=== PATIENT | male | born 1955 | race Caucasian/White ===

== ENCOUNTER → 2018-08-26 07:31 | Outpatient (CLI) | payer OTHER, SELFPAY ==
[2018-08-26 10:14] LABS: Anion Gap 9 (5-15); BUN 14 mg/dL (7-18); BUN/Creat Ratio 14.5 RATIO (10-20); Calcium,Total 8.5 mg/dL (8.5-10.1); Chloride 105 mmol/L (98-107); Cholesterol 209 mg/dL (200); Creatinine, Serum 0.97 mg/dL (0.70-1.30); EST Glomerular Filtration Rate 84 mL/min (>60); Est Glom Filt Rate - Afr Amer 102 mL/min (>60); Glucose 96 mg/dL (74-106); High Density Lipoprotein 31 mg/dL; Potassium 4.1 mmol/L (3.5-5.1); Sodium Level 141 mmol/L (136-145); Triglycerides 280 mg/dL; Very Low Density Lipoprotein 56 mg/dL (5-40)
== END ==
PROVIDERS: Family Provider Family Medicine; PCP Family Medicine; Referring Provider Family Medicine; Visit Provider Family Medicine
DX: I10 Essential (primary) hypertension (principal); E78.5 Hyperlipidemia, unspecified; Z12.5 Encounter for screening for malignant neoplasm of prostate
CPT/HCPCS: 36415; 80048; 80061; 84153; G0103

== ENCOUNTER 2019-02-21 12:12 | Emergency (ER) | payer OTHER, SELFPAY ==
[2019-02-21 12:13] VITALS: BP 150/100; PULSE 105; RESP 18; TEMP 35.9; O2SAT 98; BMI 29.4
--- NOTE | 2019-02-21 12:39 | CT_ITS ---
STUDY: CT ABDOMEN AND PELVIS WITHOUT CONTRAST REASON FOR EXAM: Male, 64 years old. Left lower quadrant pain RADIATION DOSAGE (If Supplied By Facility): CTDIvol = ( 11.77 ) mGy, DLP = ( 588.13 ) mGycm TECHNIQUE: Transaxial images were obtained from the dome of the diaphragm to the symphysis pubis without oral contrast, and without intravenous contrast. Sagittal and coronal images were reconstructed. Individualized dose optimization techniques were used for this CT. COMPARISON: None. FINDINGS: The visualized lung bases are unremarkable. The visualized portions of the heart are within normal limits. Normal liver. Normal gallbladder and extrahepatic biliary system. Normal spleen. Normal pancreas. Normal bilateral adrenal glands. Normal right kidney. Mild hydronephrosis of the left kidney with mild left hydroureter. Normal visualized stomach. Normal small intestine. Mild diverticulosis of the colon. The appendix is visualized and appears normal. Normal abdominal aorta. Normal inferior vena cava. Normal retroperitoneum. Obstructive stone is noted within the intramural segment of the left UVJ at the urinary bladder measuring 3 mm. The prostate is 5 x 5.9 cm. Fatty density at the inguinal canals. Normal abdominal wall. Normal osseous structures. CT/Abdomen/Pelvis without Cont IMPRESSION: Obstructive stone at the left UVJ with mild left hydronephrosis and hydroureter. Prominent prostate. Colonic diverticulosis. Electronically Signed: Mook Horner DO at 13:42 EDT Tel [phone], Service support ,
--- NOTE | 2019-02-21 12:42 | ED.VISSUMM ---
- ER Visit Summary Date of Service: 02/21/19 Chief Complaint: Left lower quadrant pain History of Present Illness: The patient is a 64 M presenting with left lower quadrant pain. He states this started yesterday. It worsened today. He has left lower quadrant pain that radiates to his groin. He denies back pain. He has nausea with no vomiting. No diarrhea or constipation. No blood in his stool. He denies fever. Denies chest pain or shortness of breath. No history of kidney stones. He has history of previous left inguinal hernia repair. He has not felt a bulge in this area. He has no testicular pain. Denies other complaints. Physical Examination: Vitals are stable. Patient is afebrile. Alert no acute distress. HEENT exam is unremarkable. Neck is supple. Lungs are clear and equal bilaterally. Heart is regular rate and rhythm. Abdomen is soft left lower quadrant tenderness with no guarding or rebound : No testicular tenderness or rash. Extremities are unremarkable. Skin is warm and dry. Remainder of exam is unremarkable. Emergency Department Course and Treatment: Patient given morphine, Zofran IV. CBC, chemistries unremarkable. CT abdomen pelvis shows obstructive stone at the left UVJ with mild left hydronephrosis and hydroureter. On reevaluation, patient's pain is controlled. Urinalysis shows 0-5 white blood cells, 5-10 red blood cells. On reevaluation patient states his pain is now resolved. Patient is given prescription for Vass and Zofran. Advised to follow-up with Dr. Ugalde and his primary care physician. Advised return to the ED for worsening complaints. Disposition: Discharge home Impression: Urolithiasis This note was generated with [employer] dictation software. It may contain incorrect words, spelling, and punctuation that were not noted in review of the chart prior to signing ED Disposition - Plan for ED Patient: Referrals: Calin Easlye MD [Primary Care Provider] -
[2019-02-21 12:49] LABS: Absolute Lymphocyte Count 2.26 X10^3/ul (0.83-4.51); Absolute Neutrophil Count 6.3 X10^3/uL (2.0-7.7); Basophil# 0.03 X10^3/uL; Basophil% 0.3 % (0-1); Eosinophil# 0.12 X10^3/uL; Eosinophils% 1.3 % (0-5); Hemoglobin 16.6 g/dl (13.0-16.5); Lymphocyte # 2.26 X10^3/ul (4.0); Mean Corp Hgb Conc 35.3 g/gl (32-36); Mean Corpuscular Hgb 29.7 pg (27.0-32.0); Mean Corpuscular Volume 84.2 fL (80-94); Mean Platelet Vol. 10.7 fl (6.2-12.0); Monocyte# 0.64 X10^3/uL; Monocyte% 6.8 % (0-10); Neutrophil # 6.34 X10^3/uL (2.7-7.7); Neutrophil % 67.4 % (47-70); POSITIVE COUNT NO; POSITIVE DIFFERENTIAL NO; POSITIVE MORPHOLOGY NO; Platelet Count 268 K/mm3 (150-450); RBC Distribution Width SD 40.3 fl (35.1-43.9); Red Blood Count 5.58 M/mm3 (4.6-6.2); White Blood Count 9.4 K/mm3 (4.4-11.0)
[2019-02-21] MEDS: Morphine 4 MG/ML Syringe IV (12:51)
[2019-02-21] MEDS: Ondansetron 4 MG/2 ML Vial IV (12:51)
[2019-02-21 12:55] LABS: Anion Gap 8 (5-15); BUN 15 mg/dL (7-18); BUN/Creat Ratio 13.3 RATIO (10-20); Calcium,Total 8.6 mg/dL (8.5-10.1); Chloride 110 mmol/L (98-107); Creatinine, Serum 1.13 mg/dL (0.70-1.30); EST Glomerular Filtration Rate 70 mL/min (>60); Est Glom Filt Rate - Afr Amer 85 mL/min (>60); Estimated Creatinine Clearance 69.99 ml/min; Glucose 123 mg/dL (74-106); Sodium Level 140 mmol/L (136-145)
[2019-02-21 13:34] VITALS: BP 129/71; PULSE 74; RESP 18; O2SAT 96
[2019-02-21 15:38] LABS: Bacteria 0 SEEN /hpf (None Seen); Mucous, Urine 0 SEEN /hpf (<or=2+); Squamous Epithelial Cells - UA 0 SEEN /hpf (0-5)
[2019-02-21 15:39] LABS: Color, Urine Yellow (Yellow); Glucose, Dipstick Normal (Normal); Ketone-Dipstick 50 mg/dl (Negative); Leukocyte Esterase-Dipstick Negative /ul (Negative); Nitrite-Dipstick Negative (Negative); Occult Blood-Urine 250 /ul (Negative); Protein-Dipstick Negative (Negative); Urine Bilirubin Dipstick Negative (Negative); Urine Clarity Clear (Clear); Urine Urobilinogen Normal (Normal)
--- NOTE | 2019-02-21 15:41 | ED.RN ---
PT VOIDED 780 CC PALE URINE
[2019-02-21 15:46] LABS: Red Blood Cells-Urine 5-10 SEEN /hpf (0-5); White Blood Cells 0-5 SEEN /hpf (0-5)
--- NOTE | 2019-02-21 16:03 | DCINST.ED_ITS ---
ED Disposition - Plan for ED Patient: Instructions: ED Stone Renal W Colic Prescriptions: Hydrocodone Bitart/Apap 5-325 [Fe [employer] 5MG-325MG] 1 tablet PO Q6H PRN PRN 3 Days #10 tablet PRN Reason: Pain Ondansetron [Zofran Odt] 4 mg PO Q8H PRN PRN #10 tablet PRN Reason: Nausea Referrals: Calin Easley MD [Primary Care Provider] - Jayden Ugalde MD [STAFF PHYSICIAN] -
[2019-02-21 16:10] VITALS: BP 150/98; PULSE 84; RESP 17; O2SAT 97
== END 2019-02-21 16:17 | disposition home or self-care (01) ==
LOC: ED 13:00
PROVIDERS: Emergency Provider Emergency Medicine; Family Provider Family Medicine; PCP Family Medicine
DX: N13.2 Hydronephrosis with renal and ureteral calculous obstruction (principal); I10 Essential (primary) hypertension; Z79.82 Long term (current) use of aspirin; Z79.899 Other long term (current) drug therapy
CPT/HCPCS: 74176; 80048; 81001; 85025; 96374; 96375; 99283; J7030; J2405

== ENCOUNTER 2019-02-23 10:15 | Inpatient (IN) | payer OTHER, SELFPAY ==
[2019-02-23 10:50] VITALS: BP 163/92; PULSE 90; RESP 18; TEMP 37.1; O2SAT 94; BMI 29.5
[2019-02-23 11:08] VITALS: BMI 29.5
[2019-02-23] MEDS: Morphine 2 MG/ML Syringe IV (11:19)
[2019-02-23] MEDS: 0.9% Normal Saline 1,000 ML 100 ML IV ×2 (11:19→22:03)
[2019-02-23] MEDS: 0.9% NaCl Peripheral Flush Adult/Peds IV ×3 (11:23→18:34)
[2019-02-23 12:33] LABS: Basophil# 0.02 X10^3/uL; Basophil% 0.2 % (0-1); Eosinophil# 0.03 X10^3/uL; Eosinophils% 0.3 % (0-5); Hematocrit 46.6 % (40-54); Hemoglobin 16.1 g/dl (13.0-16.5); Lymphocyte % 7.7 % (19-41); Mean Corp Hgb Conc 34.5 g/gl (32-36); Mean Corpuscular Volume 86.8 fL (80-94); Mean Platelet Vol. 10.5 fl (6.2-12.0); Monocyte# 0.62 X10^3/uL; Monocyte% 5.9 % (0-10); Neutrophil # 8.95 X10^3/uL (2.7-7.7); Neutrophil % 85.6 % (47-70); Platelet Count 249 K/mm3 (150-450); RBC Distribution Width SD 41.4 fl (35.1-43.9); Red Blood Count 5.37 M/mm3 (4.6-6.2); White Blood Count 10.5 K/mm3 (4.4-11.0)
[2019-02-23] MEDS: Ondansetron 4 MG/2 ML Vial IV ×2 (12:33→18:34)
[2019-02-23] MEDS: Cefazolin 1 GM/50 ML BAG IV ×2 (12:33→22:16)
[2019-02-23] MEDS: Ketorolac 15 MG/ML Vial IV ×2 (12:34→18:34)
[2019-02-23 12:36] LABS: POSITIVE COUNT NO; POSITIVE DIFFERENTIAL NO; POSITIVE MORPHOLOGY NO
[2019-02-23 13:03] LABS: Anion Gap 7 (5-15); BUN 14 mg/dL (7-18); BUN/Creat Ratio 10.2 RATIO (10-20); Calcium,Total 8.7 mg/dL (8.5-10.1); Chloride 107 mmol/L (98-107); Creatinine, Serum 1.37 mg/dL (0.70-1.30); EST Glomerular Filtration Rate 56 mL/min (>60); Est Glom Filt Rate - Afr Amer 68 mL/min (>60); Estimated Creatinine Clearance 57.73 ml/min; Glucose 106 mg/dL (74-106); Potassium 4.3 mmol/L (3.5-5.1); Sodium Level 141 mmol/L (136-145)
[2019-02-23 16:38] VITALS: BP 116/80; PULSE 80; RESP 18; TEMP 37.1; O2SAT 98
[2019-02-23 20:15] VITALS: BP 124/74; PULSE 76; RESP 16; TEMP 37.6; O2SAT 97
[2019-02-24] VITALS (10 sets, daily range): BP systolic 112–150; BP diastolic 72–94; PULSE 75–100; RESP 16–18; TEMP 36.5–37.4; O2SAT 95–100; BMI 29.5
--- NOTE | 2019-02-24 04:00 | EKG12_ITS ---
Test Reason : AM EKG Blood Pressure : / mmHG Vent. Rate : 077 BPM Atrial Rate : 077 BPM P-R Int : 174 ms QRS Dur : 074 ms QT Int : 392 ms P-R-T Axes : 055 023 044 degrees QTc Int : 443 ms Normal sinus rhythm Low voltage QRS Borderline ECG When compared with ECG of 28-OCT-2015 09:36, No significant change was found Confirmed by GARY LOZOYA ([id number]), editorial project manager GIAN LUQUE ([id number]) on 03/01/2019 4:48:04 PM Referred By: Jayden Ugalde Confirmed By:KADEN LOZOYA
[2019-02-24] MEDS: Cefazolin 1 GM/50 ML BAG IV ×2 (05:06→14:20)
--- NOTE | 2019-02-24 07:25 | HP.PCM_ITS ---
History of Present Illness Date of Admission: 02/24/19 Chief Complaint: LEFT FLANK PAIN The patient is a 64 year old male with significant renal colic on the left side presented to the office with nausea vomiting uncontrolled pain patient was admitted from the office because of this obstructing stone in the left distal ureter with significant hydronephrosis and high-grade obstruction. Patient was admitted today because of pain control was not adequate at home with oral medications and nausea and vomiting. Past Medical History Allergies erythromycin base Adverse Reaction (Verified 10/26/15 12:01) Upset Stomach Home Medications: Ambulatory Orders Medication Instructions Recorded Aspirin [Durlaza] 162.5 mg PO DAILY 10/26/15 Metoprolol Tartrate [Lopressor 12.5 mg PO BID 10/26/15 (beta alexis)] Ondansetron [Zofran Odt] 4 mg PO Q8H PRN PRN #10 tablet 02/21/19 Surgical History: no surgical history Lives: With Family Smoking Status: Never smoker Tobacco Use: Non-smoker Alcohol: None Drugs: None - *Family History Maternal History Items: No pertinent history Review of Systems Constitutional: Reports: Chills HEENT: Denies: Head Aches, Sinus Congestion, Sinus Drainage Cardiovascular: Denies: Chest Pain, Palpitations Respiratory: Denies: Cough, Shortness of breath at rest, Sputum production Gastrointestinal: Reports: Abdominal Pain, Nausea, Vomiting Genitourinary: Denies: Dysuria Musculoskeletal: Denies: Joint Pain, Joint Tenderness Skin: Denies: Rash, Wounds Neurological: Denies: Numbness, Tingling, Focal weakness Psychiatric: Denies: Anxiety, Depression, Homicidal Ideations, Suicidal Ideations Hematologic/ Lymphatic: Denies: Easy Bruising, Easy Bleeding VTE Information - Inpt Only VTE Present on Admission: No VTE Mechan Device Prophylaxis: SCD's - Physical Exam General: Alert, Oriented x3, Cooperative HEENT: Atraumatic, PERRLA, EOMI, Normocephalic Neck: Supple, No JVD, Negative Carotid Bruits Lungs: Clear to auscultation, Normal air movement Cardiovascular: Regular rate, No murmurs Abdomen: Bowel Sounds Present, Soft, Non Tender Extremities: No edema, Capillary Refill Less than 3 Seconds Skin: No rashes, No breakdown Musculoskeletal: No Tenderness to Palpation of Joints or Extremities Neurological: Cranial nerves II-XII grossly intact Psych/Mental Status: Normal Affect, Appropriate Vital Signs Temp Pulse Resp BP Pulse Ox 99.3 F H 84 16 112/72 97 02/24/19 02:01 02/24/19 02:01 02/24/19 02:01 02/24/19 02:01 02/24/19 02:01 Oxygen Delivery Method Room Air Weight: 93.3 kg Body Mass Index (BMI) 29.5 Intake and Output for Last 24 Hours 02/22/19 02/23/19 02/24/19 23:59 23:59 23:59 Intake Total 1064 / 1064 664 / 664 Output Total 775 / 775 250 / 250 Balance 289 / 289 414 / 414 Laboratory Tests Past 24 Hrs 02/23/19 02/23/19 12:05 12:05 WBC 10.5 RBC 5.37 Hgb 16.1 Hct 46.6 MCV 86.8 MCH 30.0 MCHC 34.5 RDW 13.0 RDW Differential 41.4 Plt Count 249 MPV 10.5 Immature Gran % (Auto) 0.300 Neut % (Auto) 85.6 H Lymph % (Auto) 7.7 L Freestone % (Auto) 5.9 Eos % (Auto) 0.3 Baso % (Auto) 0.2 Absolute Neuts (auto) 9.0 H Absolute Lymphs (auto) 0.80 L Total Counted Not Reportable Sodium 141 Potassium 4.3 Chloride 107 Carbon Dioxide 27.0 Anion Gap 7 BUN 14 Creatinine 1.37 H Estim Creat Clear Calc 57.73 Est GFR (MDRD) Af Amer 68 Est GFR (MDRD) Non-Af 56 L BUN/Creatinine Ratio 10.2 Glucose 106 Calcium 8.7 Assessment/Plan Patient will be n.p.o., IV fluids, will check labs, plan to taken to surgery tomorrow for cystoscopy stent placement possible ureteroscopy extraction of stone.
[2019-02-24] MEDS: Metoprolol Tartrate 25 MG Tablet 12.5 MG PO (08:01)
[2019-02-24] MEDS: 0.9% Normal Saline 1,000 ML 100 ML IV ×2 (08:04→17:18)
--- NOTE | 2019-02-24 10:50 | CASEMGMT ---
RN MISSY DIRECTOR OF INCOME TAX CM to room to meet with patient for initial transition planning/care coordination assessment. RN MISSY introduced self and role at [facility]. Pt voices understanding and consents to assessment at this time. Pt resting in bed in no distress at this time. @ bedside. Pt is A/O at this time and answers all questions appropriately. Care providers, pharmacy, and demographics verified at this time. PCP: Calin Easley Specialists: Aftab Benoit Pharmacy: [facility] Insurance: MMO Prescription Benefit: Yes States does not have LW or HCPOA . Provided with AD information. Pt states would like to talk with SW to complete paperwork. LNOK: Living Arrangements: Lives with in one-story home. Independent. and pt share home mgmt tasks. Transportation: Pt states drives self and states no transportation concerns at this time. able to drive on d/c. DME: Denies using any DME and denies needs. HHC/SNF: No history of either and no needs identified. Pt wishes to return home and states has no concerns with going home at time of discharge. CM to follow for any discharge planning/needs. Pt voices no further concerns/needs at this time. Advised pt to ask for CM if any further questions/concerns/needs arise. Voices understanding. PLAN: Home w/spousal support and discharge plans in place. SW consult for AD. Rosibel WILSON RN, CM
--- NOTE | 2019-02-24 14:58 | CASEMGMT ---
Social Work Note SW received referral for advanced directives. SW attempted to meet with pt, pt currently off floor for procedure. SW will follow up with pt tomorrow in regards to advanced directives. Serina Young CUSTOMER TRAINING SPECIALIST, AIRCRAFT ENGINE DISMANTLER
--- NOTE | 2019-02-24 15:25 | DCINST_ITS ---
Discharge Diet: Light diet - advance as tolerated Discharge Activity: May not drive while taking narcotic pain medications. Call your doctor if you observe: Fever of 101 or Higher Suture Line Care: Avoid Pulling/Pushing, Avoid Pinching/Bending Allergies/Adverse Reactions: Allergies erythromycin base Adverse Reaction (Verified 10/26/15 12:01) Upset Stomach Medications to take at Discharge Aspirin [Durlaza] 162.5 mg PO DAILY 10/26/15 Metoprolol Tartrate [Lopressor (beta alexis)] 12.5 mg PO BID 10/26/15 Ondansetron [Zofran Odt] 4 mg PO Q8H PRN PRN #10 tablet 02/21/19 Primary Care Physician: Calin Easley MD [Primary Care Provider] - Test Results: Test results from this visit will be discussed in further detail at your follow- up appointment, if applicable. Please Follow Up With: Jayden Ugalde MD When: please call to make an appointment.
--- NOTE | 2019-02-24 15:53 | PCM.OPRPT ---
Report of Operation Date of Procedure: 02/24/19 Pre-Operative Diagnosis: Left ureteral calculi causing obstruction and renal colic Post-Operative Diagnosis: Same Surgery/Procedure Performed:: Cystoscopy, left retrograde pyelogram, fluoroscopic interpretation of images, balloon dilation of left ureter, left ureteroscopy extraction of stone and left stent placement Description of Surgical Findings:: 64-year-old male taken back to the operating room at the smooth induction of anesthesia he was placed in dorsolithotomy position, I went into the bladder with a 21 [place] rigid cystourethroscope the entire length the urethra was normal sphincter was normal the prostate was normal I went into the bladder identified the left ureteral orifice is normal in size cannulated this advanced a wire up the ureter then over the wire advanced a balloon dilator about 4 cm and then balloon dilated the distal ureter with a 12 Ug[place]an 10 cm balloon dilator after balloon dilated the distal ureter then I advanced a wire up over the wire went over the flexible ureteroscope was able to go into the ureter quite easily went up to the kidney inspected the upper pole midpole lower pole the kidney work my way down the ureter as I worked my way down the ureter I could feel the stone on this on the ureteroscope and as I pulled the ureteroscope down the ureter the stone came out with the ureteroscope I then I went back and checked the ureter there is no remaining stone fragments I then advanced a wire up into the kidney and then a wire in place a stent we drain the bladder remove the stone fragments sent off as a specimen stent was left to the string for easy extraction bladder was drained patient anesthetic was reversed taken back to PACU good condition. Type of Anesthesia:: General Drains: stent right side - Admit VTE Documentation VTE Present on Admission: No VTE Mechan Device Prophylaxis: SCD's
[2019-02-24] MEDS: Ketorolac 15 MG/ML Vial IV (17:18)
[2019-03-01 20:06] LABS: Ca Oxalate, Monohydrate 92 % (.); Size 3x3x3 mm (.)
== END 2019-02-24 18:38 | disposition home or self-care (01) | DRG 661 ==
PROVIDERS: Admitting Provider Urology; Family Provider Family Medicine; PCP Family Medicine; Referring Provider Urology; Visit Provider Urology
PROC: 0TJ98ZZ Inspection of Ureter, Via Natural or Artificial Opening Endoscopic (ICD-10-PCS; CPT 52352; principal; 2019-02-24 16:00)
DX: N13.2 Hydronephrosis with renal and ureteral calculous obstruction (principal)
CPT/HCPCS: 36415; 76000; 80048; 82360; 85025; 93005; J7030; A4216; C1769; C2617; J2405

== ENCOUNTER → 2019-09-17 10:09 | Outpatient (CLI) | payer OTHER, SELFPAY ==
[2019-02-24 08:35] VITALS: BMI 29.5
--- NOTE | 2019-09-17 16:51 | NEURO ---
NCS and/or EMG Patient Report HPI: Patient is a 64-year-old male who presented with numbness, tingling and weakness in the right hand. Symptoms have progressed over the years and now bother him during sleep. Patient denies any neck injuries or neck surgery and is not diabetic. Physical Exam: decreased sensation to light touch in right hand fingers. Mild weakness of the right hand muscles. Tenderness at right wrist with slightly positive Tinel's sign. Findings: 1. There is prolongation of the distal latency of the right median sensory nerve response. 2. There is prolongation of distal latency of right ulnar sensory nerve response. 3. There is prolongation of the distal latency of the right median motor nerve response. 4. There is evidence of mild denervation in the form of few P waves and fibrillation potentials on needle examination of the right abductor pollicis brevis muscle. There is also evidence of decreased recruitment of the right abductor pollicis brevis and first dorsal interossei muscles. Impression: 1. Findings are consistent with a severe right median mononeuropathy at wrist due to carpal tunnel syndrome. 2. Findings are also consistent with right ulnar sensory neuropathy. Recommendation: 1. Patient recommended to wear right hand and elbow splints as much as possible. 2. Patient recommended to avoid repetitive right hand movements, heavy lifting and sleeping or leaning on right elbow. 3. Patient will need surgical release of right carpal tunnel syndrome as soon as possible due to ongoing denervation in his right abductor pollicis brevis muscle.
== END ==
PROVIDERS: Family Provider Family Medicine; PCP Family Medicine; Referring Provider Family Medicine; Visit Provider Family Medicine
DX: G56.01 Carpal tunnel syndrome, right upper limb (principal)
CPT/HCPCS: 95886; 95909

== ENCOUNTER → 2020-03-07 08:12 | Outpatient (CLI) | payer OTHER, SELFPAY ==
[2019-02-24 08:35] VITALS: BMI 29.5
[2020-03-07 10:11] LABS: Anion Gap 6 (5-15); BUN 11 mg/dL (7-18); BUN/Creat Ratio 11.2 RATIO (10-20); Calcium,Total 8.6 mg/dL (8.5-10.1); Chloride 109 mmol/L (98-107); Cholesterol 225 mg/dL (200); Creatinine, Serum 0.98 mg/dL (0.70-1.30); EST Glomerular Filtration Rate 82 mL/min (>60); Est Glom Filt Rate - Afr Amer 99 mL/min (>60); Glucose 98 mg/dL (74-106); High Density Lipoprotein 34 mg/dL; Sodium Level 141 mmol/L (136-145); Triglycerides 206 mg/dL; Very Low Density Lipoprotein 41 mg/dL (5-40)
== END ==
PROVIDERS: PCP Family Medicine; Referring Provider Family Medicine; Visit Provider Family Medicine
DX: I10 Essential (primary) hypertension (principal)
CPT/HCPCS: 36415; 80048; 80061

== ENCOUNTER → 2020-07-25 11:12 | Outpatient (CLI) | payer OTHER, SELFPAY ==
[2019-02-24 08:35] VITALS: BMI 29.5
[2020-07-25 12:42] LABS: Hematocrit 47.4 % (40-54); Mean Corp Hgb Conc 33.8 g/dL (32-36); Mean Corpuscular Hgb 29.5 pg (27.0-32.0); Mean Corpuscular Volume 87.3 fL (80-94); Mean Platelet Vol. 10.8 fl (6.2-12.0); Platelet Count 262 K/mm3 (150-450); RBC Distribution Width CV 12.7 % (11.6-14.6); RBC Distribution Width SD 39.9 fl (35.1-43.9); Red Blood Count 5.43 M/mm3 (4.6-6.2); White Blood Count 5.4 K/mm3 (4.4-11.0)
[2020-07-25 13:16] LABS: Anion Gap 6 (5-15); BUN 14 mg/dL (7-18); BUN/Creat Ratio 14.1 RATIO (10-20); Calcium,Total 8.9 mg/dL (8.5-10.1); Chloride 107 mmol/L (98-107); Creatinine, Serum 0.99 mg/dL (0.70-1.30); EST Glomerular Filtration Rate 81 mL/min (>60); Est Glom Filt Rate - Afr Amer 98 mL/min (>60); Glucose 96 mg/dL (74-106); Potassium 3.8 mmol/L (3.5-5.1); Sodium Level 140 mmol/L (136-145)
== END ==
PROVIDERS: PCP Family Medicine; Referring Provider Specialist; Visit Provider Specialist
DX: Z01.818 Encounter for other preprocedural examination (principal)
CPT/HCPCS: 36415; 80048; 85027

== ENCOUNTER → 2020-09-12 10:50 | Outpatient (CLI) | payer OTHER, SELFPAY ==
[2019-02-24 08:35] VITALS: BMI 29.5
[2020-09-12 12:31] LABS: Basophil# 0.04 X10^3/uL; Basophil% 0.7 % (0-1); Eosinophil# 0.17 X10^3/uL; Eosinophils% 3.1 % (0-5); Hematocrit 45.5 % (40-54); Hemoglobin 15.4 g/dL (13.0-16.5); Lymphocyte % 32.8 % (19-41); Mean Corp Hgb Conc 33.8 g/dL (32-36); Mean Corpuscular Hgb 29.8 pg (27.0-32.0); Mean Corpuscular Volume 88.2 fL (80-94); Mean Platelet Vol. 10.9 fl (6.2-12.0); Monocyte# 0.48 X10^3/uL; Monocyte% 8.8 % (0-10); NRBC Flagged by Analyzer 0 % (0-5); Neutrophil # 2.98 X10^3/uL (2.7-7.7); Neutrophil % 54.4 % (47-70); Platelet Count 279 K/mm3 (150-450); RBC Distribution Width CV 13.1 % (11.6-14.6); RBC Distribution Width SD 42.2 fl (35.1-43.9); Red Blood Count 5.16 M/mm3 (4.6-6.2); White Blood Count 5.5 K/mm3 (4.4-11.0)
[2020-09-12 13:04] LABS: Anion Gap 4 (5-15); BUN 14 mg/dL (7-18); Calcium,Total 8.7 mg/dL (8.5-10.1); Chloride 109 mmol/L (98-107); EST Glomerular Filtration Rate 80 mL/min (>60); Est Glom Filt Rate - Afr Amer 97 mL/min (>60); Glucose 89 mg/dL (74-106); Potassium 4.4 mmol/L (3.5-5.1); Sodium Level 139 mmol/L (136-145)
== END ==
PROVIDERS: PCP Family Medicine; Referring Provider Specialist; Visit Provider Specialist
DX: Z01.810 Encounter for preprocedural cardiovascular examination (principal); G56.02 Carpal tunnel syndrome, left upper limb
CPT/HCPCS: 36415; 80048; 85025

== ENCOUNTER → 2020-12-07 09:33 | Outpatient (CLI) | payer OTHER, SELFPAY ==
[2019-02-24 08:35] VITALS: BMI 29.5
[2020-12-07 12:36] LABS: AST(SGOT) 21 U/L (15-37); Alanine Aminotransfer ALT/SGPT 43 U/L (16-61); Albumin, Serum 3.6 g/dL (3.2-5.0); Alkaline Phosphatase 78 U/L (45-117); Anion Gap 7 (5-15); BUN 11 mg/dL (7-18); BUN/Creat Ratio 10.5 RATIO (10-20); Calcium,Total 8.6 mg/dL (8.5-10.1); Chloride 107 mmol/L (98-107); Cholesterol 228 mg/dL (200); Creatinine, Serum 1.05 mg/dL (0.70-1.30); EST Glomerular Filtration Rate 76 mL/min (>60); Est Glom Filt Rate - Afr Amer 92 mL/min (>60); Globulin 3.6 g/dL (2.2-4.2); Glucose 94 mg/dL (74-106); High Density Lipoprotein 34 mg/dL; Potassium 4.3 mmol/L (3.5-5.1); Protein, Total 7.2 g/dL (6.4-8.2); Sodium Level 138 mmol/L (136-145); Triglycerides 165 mg/dL; Very Low Density Lipoprotein 33 mg/dL (5-40)
== END ==
PROVIDERS: PCP Family Medicine; Referring Provider Family Medicine; Visit Provider Family Medicine
DX: E78.5 Hyperlipidemia, unspecified (principal)
CPT/HCPCS: 36415; 80053; 80061

== ENCOUNTER → 2021-02-28 10:26 | Outpatient (CLI) | payer OTHER, SELFPAY ==
[2019-02-24 08:35] VITALS: BMI 29.5
[2021-02-28 12:34] LABS: Anion Gap 5 (5-15); BUN 9 mg/dL (7-18); Calcium,Total 8.7 mg/dL (8.5-10.1); Chloride 107 mmol/L (98-107); Cholesterol 154 mg/dL (200); EST Glomerular Filtration Rate 80 mL/min (>60); Est Glom Filt Rate - Afr Amer 97 mL/min (>60); Glucose 94 mg/dL (74-106); High Density Lipoprotein 36 mg/dL; Potassium 4.2 mmol/L (3.5-5.1); Sodium Level 139 mmol/L (136-145); Triglycerides 130 mg/dL; Very Low Density Lipoprotein 26 mg/dL (5-40)
== END ==
PROVIDERS: PCP Family Medicine; Referring Provider Family Medicine; Visit Provider Family Medicine
DX: I10 Essential (primary) hypertension (principal)
CPT/HCPCS: 36415; 80048; 80061

== ENCOUNTER → 2023-02-27 | Outpatient (CLI) | payer OTHER, SELFPAY ==
[2023-02-27 10:19] LABS: Absolute Lymphocyte Count 1.56 X10^3/uL (0.83-4.51); Absolute Neutrophil Count 2.3 X10^3/uL (2.0-7.7); Basophil# 0.06 X10^3/uL; Basophil% 1.3 % (0-1); Eosinophil# 0.31 X10^3/uL; Eosinophils% 6.6 % (0-5); Hemoglobin 16.9 g/dL (13.0-16.5); Lymphocyte # 1.56 X10^3/ul (0.83-4.51); Lymphocyte % 33.3 % (19-41); Mean Corp Hgb Conc 33.8 g/dL (32-36); Mean Corpuscular Hgb 29.4 pg (27.0-32.0); Mean Corpuscular Volume 87.1 fL (80-94); Mean Platelet Vol. 10.8 fl (6.2-12.0); Monocyte# 0.45 X10^3/uL; Monocyte% 9.6 % (0-10); NRBC Flagged by Analyzer 0 % (0-5); Platelet Count 229 K/mm3 (150-450); RBC Distribution Width CV 12.9 % (11.6-14.6); Red Blood Count 5.74 M/mm3 (4.6-6.2); White Blood Count 4.7 K/mm3 (4.4-11.0)
[2023-02-27 10:34] LABS: Anion Gap 5 (5-15); BUN 13 mg/dL (7-18); BUN/Creat Ratio 13.1 RATIO (10-20); Calcium,Total 8.7 mg/dL (8.5-10.1); Chloride 110 mmol/L (98-107); Cholesterol 134 mg/dL (200); EST Glomerular Filtration Rate 80 mL/min (>60); Est Glom Filt Rate - Afr Amer 97 mL/min (>60); Glucose 113 mg/dL (74-106); High Density Lipoprotein 31 mg/dL; PSA,Total - Annual Screen 4.82 ng/mL (0.00-4.00); Potassium 4.2 mmol/L (3.5-5.1); Sodium Level 140 mmol/L (136-145); Triglycerides 172 mg/dL; Very Low Density Lipoprotein 34 mg/dL (5-40)
== END | disposition home or self-care (01) ==
LOC: MTLAB 07:53
PROVIDERS: PCP Family Medicine; Referring Provider Family Medicine; Visit Provider Family Medicine
DX: Z00.00 Encounter for general adult medical examination without abnormal findings (principal); Z12.5 Encounter for screening for malignant neoplasm of prostate; R06.02 Shortness of breath
CPT/HCPCS: 36415; 80048; 80061; 84153; 85025; G0103

== ENCOUNTER → 2023-03-07 | Outpatient (CLI) | payer OTHER, SELFPAY ==
--- NOTE | 2023-03-07 16:29 | STRESSREP ---
Stress Test Report Exercise myocardial perfusion stress test. 68-year-old man with a history of chest pain Stress protocol: Resting EKG demonstrates normal sinus rhythm with a rate of 83 bpm resting blood pressure is 142/80 mmHg. The patient exercised according to the regular Gautam protocol for a total duration of 4 minutes and 45 seconds attaining a maximum heart rate of 166 bpm which was 107% of maximum predicted heart rate; the maximum workload was 7 metabolic equivalents. At rest there were no ST or T wave changes noted to suggest ischemia and at peak exercise upsloping ST changes only were noted which did not meet the criteria for ischemia. Occasional premature ventricular complexes were noted during recovery no clinical angina was noted the test was terminated due to the target heart rate being achieved/fatigue. Patient also noted moderate to severe shortness of breath. The peak blood pressure was 230/100 mmHg. this was a hypertensive response to exercise. Rate-pressure product was 28,200. Myocardial perfusion protocol. 14.5 mCi of technetium 99m sestamibi was injected at rest. The patient exercised according to regular Gautam protocol for total duration of 4 minutes and 45 seconds and at peak exercise 44 point mCi of technetium 99m sestamibi was injected stress images were obtained stress and rest images were reconstructed in comparing the short axis vertical long and horizontal long axis. Gated images were also obtained. Perfusion SPECT analysis: Review of the stress images demonstrate normal uptake of tracer noted in all areas of the myocardium. The resting images similarly demonstrate normal uptake of tracer noted in all areas of the myocardium. No areas of reversibility are noted to suggest ischemia no previous infarct was noted. Gated SPECT analysis: The gated ejection fraction is 78%. Conclusion: Normal exercise myocardial perfusion stress test at a moderate workload Preserved ejection fraction. Hypertensive response to exercise with marked shortness of breath at peak exercise. Mild function aerobic impairment
== END | disposition home or self-care (01) ==
LOC: CVS 07:05
PROVIDERS: PCP Family Medicine; Referring Provider Family Medicine; Visit Provider Family Medicine
DX: R06.02 Shortness of breath (principal)
CPT/HCPCS: 78452; 93017; A9500; A4216

== ENCOUNTER → 2023-03-18 | Outpatient (CLI) | payer OTHER, SELFPAY ==
--- NOTE | 2023-03-18 08:54 | RAD_ITS ---
INDICATION: PAIN EXAMINATION/TECHNIQUE: X-RAY - RIGHT XR Foot Min 3 Views COMPARISON: FINDINGS: SOFT TISSUES: No soft tissue swelling or gas. No radiopaque foreign body. BONES/JOINTS: No acute fracture or subluxation.. Degenerative spurring with narrowing of the first metatarsophalangeal articulation. No sclerotic or destructive changes observed. RAD/Foot min 3 Views IMPRESSION: Degenerative changes especially at the first metatarsophalangeal articulation. Electronically Signed: Mook Horner DO at 22:24 EDT ,
== END | disposition home or self-care (01) ==
PROVIDERS: PCP Family Medicine; Referring Provider Podiatrist; Visit Provider Podiatrist
DX: M20.5X1 Other deformities of toe(s) (acquired), right foot (principal)
CPT/HCPCS: 73630

== ENCOUNTER → 2024-09-07 | Outpatient (CLI) | payer MEDICARE, SELFPAY ==
[2024-09-07 10:04] LABS: Absolute Lymphocyte Count 2.22 X10^3/uL (0.83-4.51); Absolute Neutrophil Count 1.4 X10^3/uL (2.0-7.7); Basophil# 0.05 X10^3/uL; Basophil% 1.1 % (0-1); Eosinophil# 0.25 X10^3/uL; Eosinophils% 5.7 % (0-5); Hematocrit 45.3 % (40-54); Hemoglobin 15.1 g/dL (13.0-16.5); Lymphocyte # 2.22 X10^3/ul (0.83-4.51); Lymphocyte % 50.2 % (19-41); Mean Corp Hgb Conc 33.3 g/dL (32-36); Mean Corpuscular Hgb 29.2 pg (27.0-32.0); Mean Corpuscular Volume 87.5 fL (80-94); Mean Platelet Vol. 10.9 fl (6.2-12.0); Monocyte# 0.52 X10^3/uL; Monocyte% 11.8 % (0-10); NRBC Flagged by Analyzer 0 % (0-5); Neutrophil # 1.37 X10^3/uL (2.7-7.7); Platelet Count 244 K/mm3 (150-450); RBC Distribution Width CV 13.2 % (11.6-14.6); RBC Distribution Width SD 42.7 fl (35.1-43.9); Red Blood Count 5.18 M/mm3 (4.6-6.2); White Blood Count 4.4 K/mm3 (4.4-11.0)
[2024-09-07 10:30] LABS: AST(SGOT) 23 U/L (15-37); Alanine Aminotransfer ALT/SGPT 34 U/L (16-61); Albumin, Serum 3.3 g/dL (3.2-5.0); Alkaline Phosphatase 61 U/L (45-117); Anion Gap 4 (5-15); BUN 14 mg/dL (7-18); BUN/Creat Ratio 15.4 RATIO (10-20); Calcium,Total 8.5 mg/dL (8.5-10.1); Chloride 109 mmol/L (98-107); Cholesterol 154 mg/dL (200); Creatinine, Serum 0.91 mg/dL (0.70-1.30); EST Glomerular Filtration Rate 88 mL/min (>60); Est Glom Filt Rate - Afr Amer 107 mL/min (>60); Globulin 3.3 g/dL (2.2-4.2); Glucose 108 mg/dL (74-106); High Density Lipoprotein 36 mg/dL; Protein, Total 6.6 g/dL (6.4-8.2); Sodium Level 138 mmol/L (136-145); Triglycerides 109 mg/dL; Very Low Density Lipoprotein 22 mg/dL (5-40)
== END | disposition home or self-care (01) ==
PROVIDERS: PCP Family Medicine; Referring Provider Family Medicine; Visit Provider Family Medicine
DX: Z01.818 Encounter for other preprocedural examination (principal)
CPT/HCPCS: 36415; 80053; 80061; 85025

== ENCOUNTER → 2024-10-20 | Outpatient (CLI) | payer MEDICARE, SELFPAY ==
[2024-10-20 18:59] LABS: ALB/GLOB Ratio 0.7 RATIO (0.9-2.4); AST(SGOT) 18 U/L (15-37); Alanine Aminotransfer ALT/SGPT 26 U/L (16-61); Alkaline Phosphatase 93 U/L (45-117); Anion Gap 5 (5-15); BUN 17 mg/dL (7-18); BUN/Creat Ratio 17.2 RATIO (10-20); Calcium,Total 8.8 mg/dL (8.5-10.1); Chloride 107 mmol/L (98-107); Cholesterol 138 mg/dL (200); Creatinine, Serum 0.99 mg/dL (0.70-1.30); EST Glomerular Filtration Rate 80 mL/min (>60); Est Glom Filt Rate - Afr Amer 97 mL/min (>60); Globulin 4.2 g/dL (2.2-4.2); Glucose 91 mg/dL (74-106); High Density Lipoprotein 33 mg/dL; PSA,Total - Annual Screen 5.48 ng/mL (0.00-4.00); Potassium 4.2 mmol/L (3.5-5.1); Protein, Total 7.2 g/dL (6.4-8.2); Sodium Level 136 mmol/L (136-145); Triglycerides 194 mg/dL; Very Low Density Lipoprotein 39 mg/dL (5-40)
== END | disposition home or self-care (01) ==
LOC: MFPLAB 14:34
PROVIDERS: PCP Family Medicine; Referring Provider Family Medicine; Visit Provider Family Medicine
DX: Z00.00 Encounter for general adult medical examination without abnormal findings (principal); Z12.5 Encounter for screening for malignant neoplasm of prostate; E78.5 Hyperlipidemia, unspecified
CPT/HCPCS: 36415; 80053; 80061; 84153; G0103

== ENCOUNTER → 2025-02-16 | Outpatient (CLI) | payer MEDICARE, SELFPAY ==
--- NOTE | 2025-02-16 08:53 | ECHOCS_ITS ---
Reason For Study Reason For Study: Syncope Procedure This was a 2D Doppler, Color Flow transthoracic echocardiogram. The study was technically difficult. Contrast injection was performed. Exam performed in department. Left Ventricle Normal size and thickness. The LV systolic function is normal. EF is 60 %. Normal diastology for age. Right Ventricle Mildly dilated right ventricle. Moderate global right ventricular systolic dysfunction. Atria The left and right atria are normal. Lipomatous hypertrophy of the atrial septum. Mitral Valve Mild (1+) mitral valve insufficiency. Tricuspid Valve Mild tricuspid valve insufficiency. Right ventricular systolic pressure estimated to be 32 mmHg. Aortic Valve Trisinus/trileaflet aortic valve. Pulmonic Valve The pulmonic valve is not well visualized. Great Vessels Normal sized aortic root. Pericardium/Pleural No pericardial effusion. Medication 22 gauge I.V. with prn adaptor inserted into right arm. Diluted definity 2ml given slow IV push to enhance endocardial definition. MMode/2D Measurements & Calculations LVIDd: 3.4 cm IVSd: 1.0 cm Ao root diam: 3.4 cm LVIDs: 2.4 cm LVPWd: 0.94 cm RVDd: 4.0 cm FS: 28.2 % LAV(MOD-bp): 34.6 ml LVAd ap4: 33.1 cm2 SV(MOD-sp4): 59.8 ml LAV(MOD-bp) Indexed: 15.9 ml/m2 LVLd ap4: 8.4 cm SI(MOD-sp4): 27.6 ml/m2 LAV(MOD-sp2): 38.2 ml EDV(MOD-sp4): 105.5 ml LAV(MOD-sp4): 31.6 ml EDV(sp4-el): 110.0 ml LVAs ap4: 19.1 cm2 LVLs ap4: 6.5 cm ESV(MOD-sp4): 45.6 ml ESV(sp4-el): 47.3 ml EF(MOD-sp4): 56.7 % EF(sp4-el): 57.0 % SV(sp4-el): 62.8 ml LA A4 area: 14.7 cm2 LA dimension(2D): 4.0 cm TAPSE: 1.9 cm Time Measurements MV dec time: 0.21 sec Doppler Measurements & Calculations MV E max randal: 61.8 cm/sec Lat Peak E' Randal: 7.3 cm/sec Med Peak E' Randal: 7.6 cm/sec MV A max randal: 76.7 cm/sec E/E' lat: 8.4 E/E' med: 8.1 MV E/A: 0.81 MV V2 max: 79.4 cm/sec MV P1/2t max randal: 59.5 cm/sec Ao V2 max: 119.0 cm/sec MV max P.5 mmHg MV P1/2t: 62.0 msec Ao max P.7 mmHg MV V2 mean: 41.8 cm/sec Ao V2 mean: 83.7 cm/sec MV mean P.84 mmHg MV dec slope: 281.3 cm/sec2 Ao mean P.2 mmHg MV V2 VTI: 18.9 cm MVA(P1/2t): 3.5 cm2 Ao V2 VTI: 26.2 cm AV (velocity ratio): 0.74 LV V1 max: 83.7 cm/sec PA V2 max: 110.2 cm/sec TR max randal: 206.1 cm/sec LV V1 max P.8 mmHg TR max P.0 mmHg LV V1 mean P.6 mmHg LV V1 mean: 60.5 cm/sec LV V1 VTI: 19.3 cm ECHO/Echo Complete W/ Contrast Interpretation Summary The study was technically difficult. The LV systolic function is normal. EF is 60 %. Mildly dilated right ventricle. Moderate global right ventricular systolic dysfunction. Mild (1+) mitral valve insufficiency. Mild tricuspid valve insufficiency. Right ventricular systolic pressure estimated to be 32 mmHg. Lipomatous hypertrophy of the atrial septum. Ordering Physician: Frederic Gomez V Referring Physician: Frederic Gomez V Performed By: Malik Scrgugs RCS
== END | disposition home or self-care (01) ==
LOC: CVS 08:52
PROVIDERS: PCP Family Medicine; Referring Provider Internal Medicine Pulmonary Disease; Visit Provider Internal Medicine Pulmonary Disease
DX: R55 Syncope and collapse (principal)
CPT/HCPCS: 93306; Q9957; A4216; C8929

== ENCOUNTER → 2025-03-30 | Outpatient (CLI) | payer MEDICARE, SELFPAY ==
[2025-03-30 16:37] LABS: Anion Gap 11 (5-15); BUN 15 mg/dL (4-19); BUN/Creat Ratio 15.5 RATIO (10-20); Calcium,Total 9.2 mg/dL (7.6-11.0); Carbon Dioxide 22.6 mmol/L (21.0-32.0); Chloride 106 mmol/L (98-108); Cholesterol 154 mg/dL (<=200); Creatinine, Serum 0.96 mg/dL (0.70-1.20); EST Glomerular Filtration Rate 87 (>60); Glucose 90 mg/dL (70-99); High Density Lipoprotein 35 mg/dL; Low Density Lipoprotein Calc. 93 mg/dL; Potassium 4.7 mmol/L (3.3-5.1); Sodium Level 139 mmol/L (133-145); Triglycerides 134 mg/dL; cholesterol:hdl ratio screen 4.46
[2025-03-30 16:38] LABS: Very Low Density Lipoprotein 27 mg/dL (5-40)
[2025-03-30 17:14] LABS: PSA,Total- Diagnostic 3.98 ng/mL (0.00-4.00)
== END | disposition home or self-care (01) ==
LOC: MTLAB 12:49
PROVIDERS: PCP Family Medicine; Referring Provider Family Medicine; Visit Provider Family Medicine
DX: R97.20 Elevated prostate specific antigen [PSA] (principal); E78.5 Hyperlipidemia, unspecified
CPT/HCPCS: 36415; 80048; 80061; 84153